=== PATIENT | male | born 1945 | race Caucasian/White ===

== ENCOUNTER 2016-07-10 09:45 | Emergency (ER) | payer MEDICARE, OTHER ==
[2016-07-10 09:56] VITALS: BP 125/83
[2016-07-10] MEDS ORDERED: DEXAMETHASONE 10 MG/ML VIAL ONE (10:08)
[2016-07-10] MEDS: DEXAMETHASONE 10 MG/ML VIAL PO STA (10:10)
--- NOTE | 2016-07-10 10:11 | ED Physician Documentation ---
PD HPI URI - Stated complaint Stated Complaint: SINUS PRESSURE/CONGESTION - Chief complaint Chief Complaint: Resp - History obtained from History obtained from: Patient - History of Present Illness Timing - onset: Yesterday Timing duration: Days (1) Timing details: Gradual onset, Still present Associated symptoms: Nasal congestion, Rhinorrhea, Sinus pain, Dry cough Worsened by: Activity Similar symptoms before: Diagnosis (pneumonia) Recently seen: Clinic (The patient was treated for pneumonia last month and this resolved.) - Additional information Additional information: 70 y/o male with a recent history of pneumonia has developed symptoms of sinus congestion and cough similar to the way the pneumonia started last month. He wants to treat this before he gets sick. He has not had a fever with this. He does have congestion and sinus pressure with the cough. Review of Systems Constitutional: denies: Fever, Chills Eyes: denies: Decreased vision Ears: denies: Ear pain Nose: reports: Rhinorrhea / runny nose, Congestion, Sinus pressure / pain Throat: denies: Sore throat Cardiac: denies: Chest pain / pressure, Palpitations Respiratory: reports: Cough. denies: Dyspnea GI: denies: Nausea, Vomiting : denies: Dysuria PD PAST MEDICAL HISTORY - Present Medications Home Medications: Ambulatory Orders Medication Instructions Recorded Confirmed Amoxicillin/Potassium Clav 1 each PO BID #20 tablet 07/10/16 [Augmentin 875-125 Tablet] Aspirin 81 mg PO 07/10/16 07/10/16 Clopidogrel Bisulfate [Plavix] 75 mg PO 07/10/16 Metoprolol Succinate [Toprol Xl] 25 mg PO ONCE 07/10/16 07/10/16 Simvastatin 10 mg PO 07/10/16 Tamsulosin HCl [Flomax] 0.4 mg PO 07/10/16 Valsartan 160 mg PO 07/10/16 metFORMIN [Glucophage] 500 mg PO BIDWM 07/10/16 07/10/16 - Allergies Allergies/Adverse Reactions: Allergies Allergy/AdvReac Type Severity Reaction Status Date / Time No Known Drug Allergies Allergy Verified 07/10/16 09:57 PD ED PE NORMAL - Vitals Vital signs reviewed: Yes (normal ) - General General: No acute distress, Well developed/nourished - HEENT HEENT: Atraumatic, PERRL, EOMI, Other (The left TM is inflammed and the right is clear. There is no tenderness to palpation of the maxillary sinuses. ) - Neck Neck: Supple, no meningeal sign, No bony TTP - Cardiac Cardiac: RRR, No murmur - Respiratory Respiratory: No respiratory distress, Clear bilaterally - Abdomen Abdomen: Soft, Non tender - Back Back: No CVA TTP - Derm Derm: Normal color, Warm and dry, No rash - Extremities Extremities: No deformity, No edema - Neuro Neuro: No motor deficit, No sensory deficit - Psych Psych: Normal mood, Normal affect Results - Vitals Vitals: Vital Signs - 24 hr 07/10/16 09:54 Temperature 37.2 C Heart Rate 93 Respiratory 24 Rate Blood Pressure 125/83 H O2 Saturation 99 Oxygen O2 Source Room air PD MEDICAL DECISION MAKING - ED course Complexity details: reviewed old records, considered differential, d/w patient ED course: 70 y/o male with recent pneumonia has developed a cough and nasal congestion again. He has OM on exam and treatment is administered with decadron 10mg PO and we will switch the antibiotic to augmentin. Departure - Departure Disposition: 01 Home, Self Care Clinical Impression: Otitis media Qualifiers: Otitis media type: suppurative Laterality: left Chronicity: acute Recurrence: not specified as recurrent Spontaneous tympanic membrane rupture: without spontaneous rupture Qualified Code(s): H66.002 - Acute suppurative otitis media without spontaneous rupture of ear drum, left ear Condition: Stable Instructions: ED Otitis Media Abx Tx Follow-Up: Landy Lozano ARNP [Primary Care Provider] - Prescriptions: Amoxicillin/Potassium Clav [Augmentin 875-125 Tablet] 1 each PO BID #20 tablet
== END 2016-07-10 10:23 | disposition home or self-care (01) ==
LOC: ED 09:45
DX: H66.002 Acute suppurative otitis media without spontaneous rupture of ear drum, left ear (principal)
CPT/HCPCS: 99283

== ENCOUNTER 2016-07-20 11:08 | Outpatient (CLI) | payer MEDICARE | END 2016-07-20 11:09 | disposition home or self-care (01) | DX: R05 Cough (principal); J18.9 Pneumonia, unspecified organism; R06.00 Dyspnea, unspecified ==

== ENCOUNTER 2017-06-16 11:47 | Outpatient (CLI) | payer MEDICARE ==
--- NOTE | 2017-06-17 08:31 | XRAY Report ---
THREE VIEW LEFT KNEE: 06/16/2017 CLINICAL INDICATION: Pain, stiffness, popping. COMPARISON: 04/24/2014 AP, lateral, sunrise views of the left knee demonstrate mild osteoarthritis, stable. There is no evidence of interval fracture or dislocation. No effusion is seen. IMPRESSION: Stable mild osteoarthritis. TD: 06/16/2017 19:06 [facility]ITAL[facility]
== END 2017-06-16 11:48 | disposition home or self-care (01) ==
LOC: DI.S 11:47
PROVIDERS: ATTEND Nurse Practitioner Family
DX: M25.562 Pain in left knee (principal); M17.12 Unilateral primary osteoarthritis, left knee

== ENCOUNTER 2017-06-17 12:21 | Emergency (ER) | payer MEDICARE ==
[2017-06-17] MEDS ORDERED: IBUPROFEN 600 MG TABLET PO STA (12:57)
[2017-06-17] MEDS ORDERED: ACETAMINOPHEN 325 MG TABLET PO STA (13:04)
--- NOTE | 2017-06-17 13:07 | ED Physician Documentation ---
PD HPI LOWER EXT INJURY - Stated complaint Stated Complaint: LT KNEE PX - Chief complaint Chief Complaint: Ext Problem - History obtained from History obtained from: Patient - History of Present Illness PD HPI LOW EXT INJURY LOCATION: Left, Knee Type of injury: Other (No specific injury.) Timing - onset: How many weeks ago (1) Timing - details: Waxing and waning Worsened by: Moving, Other (Bending knee.) Associated symptoms: No: Weakness, Numbness Recently seen: Clinic (Yesterday.) - Additional information Additional information: The patient is a 71-year-old male who presents with pain in his left knee. The pain has been waxing and waning for the past week, without any known specific injury. He was seen by his primary physician yesterday, and an x-ray revealed "stable mild osteoarthritis." His pain became worse this morning when his knee "popped" when stepping into his truck. He reports history of similar symptoms a few months ago. His symptoms resolved spontaneously at that time. Review of Systems Constitutional: denies: Fever Respiratory: denies: Dyspnea Skin: denies: Rash Musculoskeletal: reports: Joint pain (Left knee.). denies: Back pain Neurologic: denies: Focal weakness, Numbness PD PAST MEDICAL HISTORY - Past Medical History Past Medical History: Yes Cardiovascular: Hypertension, High cholesterol, [place] Respiratory: Pneumonia, Other Endocrine/Autoimmune: Type 2 diabetes : Benign prostate hypertrophy Other Past Medical History: Idiopathic pulmonary fibrosis. - Past Surgical History Past Surgical History: No - Present Medications Home Medications: Ambulatory Orders Medication Instructions Recorded Confirmed Aspirin 81 mg PO DAILY 07/10/16 06/17/17 Clopidogrel Bisulfate [Plavix] 75 mg PO DAILY 07/10/16 06/17/17 Metoprolol Succinate [Toprol Xl] 25 mg PO ONCE 07/10/16 06/17/17 Simvastatin 40 mg PO DAILY 07/10/16 06/17/17 Tamsulosin HCl [Flomax] 0.4 mg PO DAILY 07/10/16 06/17/17 Valsartan 160 mg PO DAILY 07/10/16 06/17/17 metFORMIN [Glucophage] 500 mg PO DAILY 07/10/16 06/17/17 - Allergies Allergies/Adverse Reactions: Allergies Allergy/AdvReac Type Severity Reaction Status Date / Time No Known Drug Allergies Allergy Verified 06/17/17 12:33 - Social History Does the pt smoke?: No Smoking Status: Never smoker Does the pt drink ETOH?: No Does the pt have substance abuse?: No - Immunizations Immunizations are current?: Yes - POLST Patient has POLST: No PD ED PE NORMAL - Vitals Vital signs reviewed: Yes (Borderline hypertension.) - General General: Alert and oriented X 3, Well developed/nourished - HEENT HEENT: Atraumatic - Respiratory Respiratory: No respiratory distress - Derm Derm: No rash - Extremities Extremities: No edema, No calf tenderness / cord, Other (There is very slight effusion of the left knee, without focal tenderness to palpation along the medial or lateral joint lines, popliteal fossa, or suprapatellar region. There is no erythema, and no warmth to palpation. There is no ligamentous instability detected. Distal neurovascular is intact. He can fully extend, and can flex to 90, although flexion exacerbates his discomfort.) - Neuro Neuro: Alert and oriented X 3, No motor deficit, No sensory deficit Results - Vitals Vitals: Oxygen O2 Source Room air PD MEDICAL DECISION MAKING - ED course Complexity details: reviewed old records, considered differential, d/w patient, d/w family ED course: The patient's presentation is most consistent with internal derangement of the left knee, most likely a meniscus tear. I reviewed the x-ray that was taken yesterday, and agree with the radiologist's findings. I do not see any clinical indication for repeating imaging studies today. His presentation does not suggest septic joint or acute bony injury. Treatment in the emergency department included application of a knee immobilizer , and administration of acetaminophen 650 mg orally. I discussed with him and his symptomatic treatment, outpatient follow-up, as well as potentially worrisome signs or symptoms that should prompt reevaluation is needed. Departure - Departure Disposition: 01 Home, Self Care Clinical Impression: Left knee pain Qualifiers: Chronicity: acute Qualified Code(s): M25.562 - Pain in left knee Knee internal derangement Qualifiers: Laterality: left Qualified Code(s): M23.92 - Unspecified internal derangement of left knee Condition: Stable Instructions: ED Meniscal Injury Knee Poss Follow-Up: Tacos Jeffries MD [Primary Care Provider] - Comments: Use the knee immobilizer if it provides comfort. Continue using Tylenol as needed for pain. Follow-up with your primary physician, or with orthopedics within 2 weeks. Call to schedule an appointment. Return to the emergency department if you develop increasing pain, increasing swelling of your knee, or otherwise worsening symptoms. Discharge Date/Time: 06/17/17 13:40
[2017-06-17 13:41] VITALS: BP 144/81
== END 2017-06-17 13:40 | disposition home or self-care (01) ==
LOC: ED 12:21
DX: M25.562 Pain in left knee (principal); I10 Essential (primary) hypertension; E78.00 Pure hypercholesterolemia, unspecified; I25.2 Old myocardial infarction; E11.9 Type 2 diabetes mellitus without complications; J84.10 Pulmonary fibrosis, unspecified; Z79.84 Long term (current) use of oral hypoglycemic drugs; Z79.82 Long term (current) use of aspirin
CPT/HCPCS: 29530; 99283; A9270

== ENCOUNTER 2018-01-13 13:32 | Outpatient (CLI) | payer MEDICARE ==
--- NOTE | 2018-01-13 16:33 | XRAY Report ---
Procedure Date: 01/13/2018 Accession Number: [id number] / [id number] Procedure: XRS - Chest 2 View X-Ray CPT Code: 67974 FULL RESULT: EXAM: Chest 2 View X-Ray DATE: 01/13/2018 1:45 PM CLINICAL HISTORY: CHRONIC FIBROSIS COMPARISON: 07/20/2016, 06/24/2016, 06/16/2016. TECHNIQUE: 2 views. FINDINGS: Lungs/Pleura: Focal opacification in the lateral right chest at the level of the horizontal fissure, decreased in conspicuity compared to 2016. No reticular markings and no lung volume loss are identified to suggest significant progression of fibrotic disease. There is no lung consolidation. There is no pleural thickening, pleural effusion or pneumothorax. Mediastinum: Heart and mediastinal contours are stable. Other: None. IMPRESSION: Overall stable chest radiograph without significant abnormalities. Unless the diagnosis of fibrotic lung disease is well established and categorized, recommend formal high-resolution chest CT in consultation with pulmonology. [facility]
== END 2018-01-13 13:33 | disposition home or self-care (01) ==
LOC: DI.S 13:32
PROVIDERS: ATTEND Nurse Practitioner Family
DX: J84.10 Pulmonary fibrosis, unspecified (principal)
CPT/HCPCS: 71046